=== PATIENT | male | born 1990 | race Caucasian/White ===

== ENCOUNTER 2021-01-11 19:19 | Emergency (ER) | payer OTHER ==
[2021-01-11 19:27] VITALS: BP 145/104
--- NOTE | 2021-01-11 19:57 | XRAY Report ---
PROCEDURE: Knee 4 View LT INDICATIONS: Trauma TECHNIQUE: 4 views of the left knee(s) were acquired. COMPARISON: None. FINDINGS: Bones: No fractures or dislocations. No suspicious bony lesions. Soft tissues: No joint effusion. No suspicious soft tissue calcifications. IMPRESSION: No acute fracture. No osseous lesion. If symptoms and/or clinical suspicion for patholog y continue, further assessment with repeat plain films, or advanced imaging (e.g., CT, MRI, or bone s can) is recommended for further assessment. Reviewed by: Jack Toledo MD on 01/11/2021 7:56 PM PDT Approved by: Jack Toledo MD on 01/11/2021 7:56 PM PDT Station ID: [id number]
--- NOTE | 2021-01-11 21:08 | ED Physician Documentation ---
History of Present Illness - Stated complaint Stated Complaint: LT KNEE INJ - Chief complaint Chief Complaint: Ext Problem - History obtained from History obtained from: Patient - History of Present Illness Timing: Today Pain level max: 5 Pain level now: 4 - Additonal information Additional information: Patient is a 30-year-old male who presents to the emergency department left knee injury while playing flag football today. He states he caught a pass on his knee and then had pain when he stood up. He states that there is swelling to the knee, worse with walking, better with rest. No numbness or tingling. Review of Systems Constitutional: denies: Fever, Chills Respiratory: denies: Cough GI: denies: Abdominal Pain, Nausea, Vomiting, Diarrhea : denies: Dysuria, Frequency, Hesitancy PD PAST MEDICAL HISTORY - Past Medical History Past Medical History: No - Past Surgical History Past Surgical History: No - Allergies Allergies/Adverse Reactions: Allergies Allergy/AdvReac Type Severity Reaction Status Date / Time No Known Drug Allergies Allergy Verified 01/11/21 19:27 - Living Situation Living Arrangement: reports: At home - Social History Does the pt have substance abuse?: No PD ED PE NORMAL - Vitals Vital signs reviewed: Yes - General General: Alert and oriented X 3, No acute distress - HEENT HEENT: Moist mucous membranes - Derm Derm: Warm and dry - Extremities Extremities: Other (Left knee - Mild swelling to the lateral aspect of the left knee. Does not appear to be a joint effusion. Mild laxity of the LCL. ACL, PC L, MCL are intact. No significant tenderness along the medial or lateral joint line. NVI) - Neuro Neuro: Alert and oriented X 3 - Psych Psych: Normal mood, Normal affect Results - Vitals Vitals: Vital Signs - 24 hr 01/11/21 01/11/21 19:26 21:49 Temperature 37.1 C Heart Rate 95 86 Respiratory 16 14 Rate Blood Pressure 145/104 H O2 Saturation 97 98 Oxygen O2 Source Room air - Rads (name of study) L knee xray Radiology: Final report received, EMP read contemporaneously, See rad report ( No acute fracture. No osseous lesion. If symptoms and/or clinical suspicion for pathology continue, further assessment with repeat plain films, or advanced imaging (e.g., CT, MRI, or bone scan) is recommended for further assessment.) PD MEDICAL DECISION MAKING - ED course Complexity details: reviewed results, considered differential, d/w patient ED course: 30-year-old male with left knee sprain and contusion. Does not appear to be intra-articular effusion. Placed in an Dayne bandage for compression. No brace is available here tonight. Given crutches. I will have him follow-up with orthopedics and the swelling has gone down to be reevaluated. Patient counseled regarding signs and symptoms for which I believe and urgent re-evaluation would be necessary. Patient with good understanding of and agreement to plan and is comfortable going home at this time This document was made in part using voice recognition software. While efforts are made to proofread this document, sound alike and grammatical errors may occur. Departure - Departure Disposition: 01 Home, Self Care Clinical Impression: Strain of left knee Qualifiers: Encounter type: initial encounter Qualified Code(s): S86.912A - Strain of unspecified muscle(s) and tendon(s) at lower leg level, left leg, initial encounter Contusion, knee Qualifiers: Encounter type: initial encounter Laterality: left Qualified Code(s): S80.02XA - Contusion of left knee, initial encounter Condition: Good Instructions: ED Sprain Knee Collateral Ligaments Follow-Up: KEITH VINSON MD [Primary Care Provider] - Demarco Lr MD [Provider Admit Priv/Credential] - Within 1 week Comments: You can use Motrin or Tylenol as needed for pain. Please follow-up with orthopedics in 1 week for repeat evaluation of your knee. This is likely a sprain of your Lateral collateral ligament and a contusion. We will place you on crutches and in a knee brace. You can bear weight as tolerated. Return if you worsen Discharge Date/Time: 01/11/21 21:52
== END 2021-01-11 21:52 | disposition home or self-care (01) ==
LOC: ED 19:19
DX: S83.92XA Sprain of unspecified site of left knee, initial encounter (principal); S86.912A Strain of unspecified muscle(s) and tendon(s) at lower leg level, left leg, initial encounter; S80.02XA Contusion of left knee, initial encounter; W18.39XA Other fall on same level, initial encounter; Y93.62 Activity, american flag or touch football
CPT/HCPCS: 99282; 99283